=== PATIENT | female | born 1970 | race African-American/Black ===

== ENCOUNTER 2021-04-28 05:39 | Observation (INO) ==
[2021-04-28] MEDS ORDERED: ASPIRIN 325 MG TABLET PO STA (06:35)
[2021-04-28] MEDS ORDERED: NITROGLYCERIN 2% OINT 1 INCH/GM PACK TOP STA (06:35)
[2021-04-28] MEDS ORDERED: MORPHINE 2 MG/1 ML SYRINGE IV STA (06:35)
[2021-04-28] MEDS ORDERED: ONDANSETRON 4 MG/2 ML VIAL IV STA (06:35)
[2021-04-28 06:44] LABS: Basophils % 0.3 % (0.0-0.8); Eosinophils # 0.2 10*3/uL (0.0-0.87); Eosinophils % 3.6 % (0.00-10.9); Hematocrit 42.4 VOL% (35.7-47.0); Hemoglobin 13.9 GM/DL (12.0-16.0); Immature Granulocytes % 0.2 %; Immature Granulocytes Absolute 0.01 #; Lymphocytes # 1.5 10*3/uL (1.4-4.0); Lymphocytes % 26.4 % (21.3-54.2); Mean Corpuscular HGB Conc 32.8 GM/DL (32-36); Mean Corpuscular Volume 85.5 FL (87-102); Mean Platelet Volume 10.8 FL (9.6-12.0); Monocytes % 6.9 % (1.7-12.7); Neutrophils % 62.6 % (38.7-73.9); Platelet Count 323 T/CUMM (130-400); Red Blood Count 4.96 MC/CUMM (3.8-5.5); Red Cell Distribution Width 14.1 % (9.3-17.3); White Blood Count 5.8 T/CUMM (4-12)
[2021-04-28 07:16] LABS: Albumin 3.6 G/DL (3.4-5.0); Bilirubin,Total 0.4 MG/DL (0.20-1.00); Osmolality,Calculated 281.3 MOS/KG (273-304); Total Protein 7.2 G/DL (6.4-8.2)
[2021-04-28 09:12] LABS: Bilirubin,Urine Negative (Negative); Blood, Urine Negative (Negative); Glucose,Urine (UA) Negative (Negative); Ketones,Urine Negative (Negative); Mucus,Urine Occasional /LPF (Occasional); Nitrite,Urine Negative (Negative); Protein,Urine 30 MG/DL; RBC,Urine 3 /HPF (0-4); Squamous Epithelial Cell,Urine Occasional /HPF (0-10); Urine Appearance CLEAR (Clear); Urine Color Yellow (Yellow); Urine Specific Gravity 1.011 (1.001-1.035); Urine Urobilinogen < 2.0 EU/DL (0.2-1.0)
[2021-04-28] MEDS ORDERED: DEXTROSE 50% 25 GM/50 ML VIAL IV PRN (09:28)
[2021-04-28] MEDS ORDERED: ONDANSETRON 4 MG/2 ML VIAL IV PRN (09:28)
[2021-04-28] MEDS ORDERED: GLUCAGON 1 MG VIAL IM PRN (09:28)
[2021-04-28] MEDS ORDERED: hydrALAZINE 20 MG/1 ML VIAL IV PRN (09:28)
[2021-04-28] MEDS ORDERED: ACETAMINOPHEN 325 MG TABLET PO PRN (09:28)
[2021-04-28] MEDS ORDERED: DOCUSATE SODIUM 100 MG CAPSULE PO PRN (09:28)
[2021-04-28] MEDS ORDERED: ENOXAPARIN 40 MG/0.4 ML SYRINGE SUBCUT SCH (09:30)
[2021-04-28] MEDS ORDERED: KETOROLAC 30 MG/1 ML VIAL IV STA (09:32)
[2021-04-28] MEDS ORDERED: NITROGLYCERIN SL 0.4 MG TABLET SL PRN (09:35)
[2021-04-28 09:40] LABS: Barbiturates Screen,Urine Negative (Negative); Benzodiazepines Screen,Urine Negative (Negative); Cannabinoid Screen,Urine Negative (Negative); Opiate Screen,Urine Positive (Negative); Phencyclidine Screen,Urine Negative (Negative)
[2021-04-28] MEDS ORDERED: PANTOPRAZOLE 40 MG TABLET PO SCH (10:00)
[2021-04-28 10:27] LABS: Risk Ratio 3.15; VLDL Cholesterol 12.6 MG/DL
[2021-04-28] MEDS ORDERED: INSULIN REGULAR 100 UNIT/ML SUBCUT SCH (11:30)
[2021-04-28 14:31] VITALS: BP 135/78
[2021-04-29] MEDS ORDERED: ASPIRIN EC 325 MG TABLET PO SCH (09:00)
== END 2021-04-28 14:30 | disposition home or self-care (01) ==
LOC: N.ED 05:39 → N.EDINP 05:39
PROVIDERS: ADMIT Internal Medicine Geriatric Medicine; ATTEND Internal Medicine Geriatric Medicine